=== PATIENT | male | born 1970 | race Caucasian/White ===

== ENCOUNTER 2017-08-05 20:11 | Emergency (ER) | payer OTHER ==
[~2017-08-05] VITALS: Ht 177.8 cm; Wt 96.7 kg
[~2017-08-05 20:11] MED LIST: APIX1TAB3 PO; ASPI81TA28 PO; ATOR-54 PO; DLTCD/240 PO; DOXY100C41 PO; EXEN1INJ4 SC; INSDGIPEN SC; INSU100I2 SC; METO50TA16 PO; TMB/100 PO; ZLF50 PO
[2017-08-05 20:12] VITALS: TEMP 36.9; Ht 177.8 cm; Wt 96.7 kg
--- NOTE | 2017-08-05 20:23 | EMERGENCY ROOM VISIT NOTE ---
History Report prepared by Benji: Carmela Long Under the Supervision of: Dr. Peter Handley M.D. First contact with patient: 20:16 Stated Complaint: LEG EDEMA, TESTICULE PAIN History of Present Illness The patient is a 47 year old male who presents to the Emergency Room with complaints of worsening testicular pain for the past 1 day. He rates his discomfort as a 10/10 in severity. Movement and palpation worsen his pain. The patient denies scratching his testicles or itching in his groin recently. He reports he underwent an ablation for atrial fibrillation through the groin on July 08, 2017. He states he was recovering well until yesterday, when he developed a sudden onset of testicular pain and swelling, as well as lower abdominal pain and dysuria. He states he was running a fever earlier this evening, but did not check his temperature. The patient has a history of Insulin dependent type 2 diabetes. He admits his sugars have been over 300 for the past few days. Source of History: patient Onset: yesterday Position: other (testicles) Symptom Intensity: 10/10 Timing: worsening Modifying Factors (Worsening): movement, other (palpation) Associated Symptoms: + fevers, + urinary symptoms Review of Systems See HPI for pertinent positives and negatives. A total of ten systems were reviewed and were otherwise negative. Past Medical & Surgical Medical Problems: (1) Atrial fibrillation (2) Bronchitis (3) Chest pain (4) Chest pain (5) Chest pain with high risk for cardiac etiology (6) Chronic right hip pain (7) Contusion of multiple sites (8) Diabetic neuropathy (9) DM (diabetes mellitus), type 2 (10) Fall (11) Hyperglycemia (12) Knee pain (13) Left sided numbness (14) Nicotine abuse (15) Noncompliance (16) Osteomyelitis hip (17) Osteomyelitis hip (18) Pain, dental (19) Pain, dental (20) Past Psych Meds (21) Poorly controlled diabetes mellitus (22) Right hip pain (23) Septic arthritis (24) Syncope (25) TIA (transient ischemic attack) Surgical Problems: (1) S/P cholecystectomy Family History Diabetes mellitus GRANDMOTHER HEART DISEASE MOTHER GRANDMOTHER Hypertension MOTHER GRANDMOTHER Social History Smoking Status: Former Smoker Alcohol Use: none Drug Use: none, other Marital Status: Housing Status: lives with family Occupation Status: employed Current/Historical Medications Scheduled Aspirin (Aspirin Ec), 81 MG PO DAILY Atorvastatin (Lipitor), 40 MG PO QPM Clindamycin Hcl (Clindamycin Hcl), 3 CAP PO QID Insulin Glargine (Lantus Solostar), 30 UNITS SC BID Insulin Lispro (Human) (Humalog Kwikpen), 1 DOSE SC AC Saccharomyces Boulardii (Florastor), 1 CAP PO BID Scheduled PRN Ibuprofen Tab (Motrin), 800 MG PO Q8H PRN for Pain Oxycodone Hcl (Oxycodone Hcl), 1 CAP PO QID PRN for Pain or Fever Allergies Coded Allergies: Ketorolac Tromethamine (Verified Allergy, Severe, throat swelling, 08/05/17) Tramadol (Verified Allergy, Severe, throat swelling, rash, 08/05/17) Amoxicillin (Verified Allergy, Intermediate, rash, 08/05/17) Morphine (Unverified Allergy, Intermediate, VOMITING, 08/05/17) Penicillins (Verified Allergy, Intermediate, rash, 08/05/17) Cyclobenzaprine (Verified Allergy, Mild, RASH, 08/05/17) Nitroglycerin (Verified Adverse Reaction, Intermediate, h/a for 2 weeks, ) Physical Exam Vital Signs Date Time Temp Pulse Resp B/P (MAP) Pulse Ox O2 Delivery O2 Flow Rate FiO2 08/06/17 04:21 125/86 08/06/17 03:27 98 16 138/78 97 Room Air 08/06/17 02:17 100 20 127/72 96 Room Air 08/06/17 00:54 100 16 127/79 93 Room Air 08/05/17 23:10 111 16 119/72 92 Room Air 08/05/17 22:27 107 16 127/76 92 Room Air 08/05/17 21:38 112 21 137/88 94 Room Air 08/05/17 20:26 118 08/05/17 20:12 36.9 120 24 148/87 97 Room Air Physical Exam GENERAL: Awake, alert, well-appearing, in mild distress HENT: Normocephalic, atraumatic. Oropharynx unremarkable. Dry cracked mucous membranes. EYES: Normal conjunctiva. Sclera non-icteric. NECK: Supple. No nuchal rigidity. FROM. No JVD. RESPIRATORY: Clear to auscultation. CARDIAC: Regular rate, normal rhythm. Extremities warm and well perfused. Pulses equal. ABDOMEN: Soft, non-distended. No tenderness to palpation. No rebound or guarding. No masses. RECTAL: Deferred. : Edematous scrotum with mild erythema and area of induration and fluctuance at the posterior aspect of the scrotum. MUSCULOSKELETAL: Chest examination reveals no tenderness. The back is symmetrical on inspection without obvious abnormality. There is no CVA tenderness to palpation. No joint edema. LOWER EXTREMITIES: Calves are equal size bilaterally and non-tender. No edema. No discoloration. NEURO: Normal sensorium. No sensory or motor deficits noted. SKIN: No rash or jaundice noted. Medical Decision & Procedures ER Provider Diagnostic Interpretation: Bedside Ultrasound over indurated area demonstrates discrete fluid collection consistent with abscess. Radiology results as stated below per my review and radiologist interpretation: (TESTICULAR) SCROTUM-CONT CLINICAL HISTORY: 47 years-old Male with testicular/scrotal pain/swelling - r/o abscess. Acute scrotal pain and swelling COMPARISON STUDY: CT abdomen and pelvis 02/26/2016, scrotal ultrasound 06/23/2015 TECHNIQUE: Real-time, grayscale, and color Doppler sonography of the testes and scrotum is performed. Images are reviewed in the transverse and longitudinal planes. FINDINGS: RIGHT HEMISCROTUM: The right testis measures 4.9 x 2.6 x 2.4 cm and the parenchyma appears unremarkable. No intratesticular mass is seen. Normal-appearing arterial inflow is present within the right testicle. There is a punctate calcification within the right epididymal head which otherwise appears unremarkable. No varicocele or hydrocele is identified. Moderate scrotal wall edema. LEFT HEMISCROTUM: The left testis measures 4.9 x 2.3 x 2.6 cm and the parenchyma appears unremarkable. No intratesticular mass is seen. Normal-appearing arterial inflow is present within the left testicle. The left epididymal head appears normal. No varicocele or hydrocele is identified. Moderate scrotal wall edema. IMPRESSION: 1. Unremarkable sonographic appearance of the bilateral testicles without evidence of torsion or mass. 2. Moderate scrotal wall edema without drainable fluid collection. 3. No varicocele or hydrocele identified. The above report was generated using voice recognition software. It may contain grammatical, syntax or spelling errors. Electronically signed by: Demetrio Plascencia M.D. 08/05/2017 10:27 PM Laboratory Results 08/05/17 20:40 Red Blood Count 4.88, Mean Corpuscular Volume 87.1, Mean Corpuscular Hemoglobin 30.3, Mean Corpuscular Hemoglobin Concent 34.8, Mean Platelet Volume 10.1, Neutrophils (%) (Auto) 78.7, Lymphocytes (%) (Auto) 10.3, Monocytes (%) (Auto) 10.0, Eosinophils (%) (Auto) 0.6, Basophils (%) (Auto) 0.1, Neutrophils # (Auto ) 7.36, Lymphocytes # (Auto) 0.96, Monocytes # (Auto) 0.94, Eosinophils # (Auto ) 0.06, Basophils # (Auto) 0.01 08/05/17 20:40 Test 08/05/17 20:40 08/05/17 21:01 08/05/17 21:12 08/05/17 23:35 White Blood Count 9.36 K/uL (4.8-10.8) Red Blood Count 4.88 M/uL (4.7-6.1) Hemoglobin 14.8 g/dL (14.0-18.0) Hematocrit 42.5 % (42-52) Mean Corpuscular Volume 87.1 fL (80-100) Mean Corpuscular Hemoglobin 30.3 pg (25-34) Mean Corpuscular Hemoglobin Concent 34.8 g/dl (32-36) Platelet Count 222 K/uL (130-400) Mean Platelet Volume 10.1 fL (7.4-10.4) Neutrophils (%) (Auto) 78.7 % Lymphocytes (%) (Auto) 10.3 % Monocytes (%) (Auto) 10.0 % Eosinophils (%) (Auto) 0.6 % Basophils (%) (Auto) 0.1 % Neutrophils # (Auto) 7.36 K/uL (1.4-6.5) Lymphocytes # (Auto) 0.96 K/uL (1.2-3.4) Monocytes # (Auto) 0.94 K/uL (0.11-0.59) Eosinophils # (Auto) 0.06 K/uL (0-0.5) Basophils # (Auto) 0.01 K/uL (0-0.2) RDW Standard Deviation 43.4 fL (36.4-46.3) RDW Coefficient of Variation 13.6 % (11.5-14.5) Immature Granulocyte % (Auto) 0.3 % Immature Granulocyte # (Auto) 0.03 K/uL (0.00-0.02) Est Creatinine Clear Calc Drug Dose 109.8 ml/min Estimated GFR () 107.9 Estimated GFR (Non- 93.1 BUN/Creatinine Ratio 6.8 (10-20) Calcium Level 9.5 mg/dl (8.5-10.1) Total Bilirubin 0.9 mg/dl (0.2-1) Direct Bilirubin 0.2 mg/dl (0-0.2) Aspartate Amino Transf (AST/SGOT) 19 U/L (15-37) Alanine Aminotransferase (ALT/SGPT) 21 U/L (12-78) Alkaline Phosphatase 93 U/L (45-117) Total Protein 8.1 gm/dl (6.4-8.2) Albumin 3.5 gm/dl (3.4-5.0) Lipase 64 U/L (73-393) Bedside Hemoglobin 13.9 g/dl (14.0-18.0) Bedside Hematocrit 41 % (42-52) Bedside Sodium 135 mEq/L (135-144) Bedside Potassium 3.7 mEq/L (3.3-5.0) Bedside Chloride 93 mEq/L (101-112) Bedside Total CO2 28 mEq/l (24-31) Anion Gap 19.0 mmol/L (16-25) Bedside Blood Urea Nitrogen 5 mg/dl (7-18) Bedside Creatinine 0.8 mg/dl (0.6-1.3) Bedside Glucose (other) 240 mg/dl (70-99) Bedside Ionized Calcium ([place]ria) 1.20 mmol/l (1.12-1.32) Lactic Acid Level 1.3 mmol/L (0.4-2.0) Urine Color DK YELLOW Urine Appearance CLEAR (CLEAR) Urine pH 5.0 (4.5-7.5) Urine Specific [place] 1.027 (1.000-1.030) Urine Protein 1+ (NEG) Urine Glucose (UA) 3+ (NEG) Urine Ketones TRACE (NEG) Urine Occult Blood NEG (NEG) Urine Nitrite NEG (NEG) Urine Bilirubin NEG (NEG) Urine Urobilinogen NEG (NEG) Urine Leukocyte Esterase NEG (NEG) Urine WBC (Auto) 0 /hpf (0-5) Urine RBC (Auto) 0-4 /hpf (0-4) Urine Hyaline Casts (Auto) 1-5 /lpf (0-5) Urine Epithelial Cells (Auto) 0-5 /lpf (0-5) Urine Bacteria (Auto) NEG (NEG) Test 08/06/17 02:00 Laboratory results reviewed by me Medications Administered Medications (Trade) Dose Ordered Sig/Esdras Route Start Time Stop Time Status Last Admin Dose Admin Sodium Chloride 1,000 ml @ 999 mls/hr Q1H1M STAT IV 08/05/17 20:24 08/05/17 21:24 DC 08/05/17 20:24 999 MLS/HR Fentanyl Citrate (Fentanyl Inj) 100 mcg NOW STAT IV 08/05/17 20:24 08/05/17 20:28 DC 08/05/17 21:36 100 MCG Acetaminophen 100 ml @ 400 mls/hr NOW STAT IV 08/05/17 20:24 08/05/17 20:38 DC 08/05/17 21:36 400 MLS/HR Sodium Chloride 2,000 ml @ 999 mls/hr Q2H1M STAT IV 08/05/17 20:28 08/05/17 22:28 DC 08/05/17 21:36 999 MLS/HR Sodium Chloride 1,000 ml @ 999 mls/hr Q1H1M STAT IV 08/05/17 23:45 08/06/17 00:45 DC 08/06/17 00:48 999 MLS/HR Insulin Aspart (novoLOG ASPART) 4 units NOW STAT SC 08/05/17 23:45 08/05/17 23:48 DC 08/05/17 23:45 4 UNITS Lidocaine HCl (Buffered Lidocaine 1% Inj) 20 ml ONE ONCE INFIL 08/06/17 00:30 08/06/17 00:31 DC 08/06/17 00:30 20 ML Fentanyl Citrate (Fentanyl Inj) 100 mcg NOW STAT IV 08/06/17 00:29 08/06/17 00:31 DC 08/06/17 00:48 100 MCG Sodium Chloride 1,000 ml @ 999 mls/hr Q1H1M STAT IV 08/06/17 00:34 08/06/17 01:34 DC 08/06/17 00:34 999 MLS/HR Clindamycin Phosphate 900 mg/ Dextrose 50 ml @ 100 mls/hr 0032 IV 08/06/17 00:32 08/06/17 01:01 DC 08/06/17 01:09 100 MLS/HR Fentanyl Citrate (Fentanyl Inj) 100 mcg NOW STAT IV 08/06/17 02:39 08/06/17 02:40 DC 08/06/17 02:46 100 MCG Oxycodone HCl (Roxicodone Immediate Rel 5MG Home Pack) 1 homepack UD ONCE PO 08/06/17 04:00 08/06/17 04:02 DC 08/06/17 04:16 1 HOMEPACK Clindamycin HCl (Cleocin Cap) 450 mg NOW STAT PO 08/06/17 04:00 08/06/17 04:02 DC 08/06/17 04:00 450 MG Ibuprofen (Motrin Tab) 800 mg NOW STAT PO 08/06/17 04:03 08/06/17 04:04 DC 08/06/17 04:03 800 MG Procedure Incision & Drainage Indication: Abscess. Location: Posterior Aspect of Scrotum Verbal consent was obtained after the risks and benefits were explained, including but not limited to bleeding, scarring, infection, pain, and bone/joint /nerve damage. At this time, the risks of the procedure are less than the risks of NOT performing the procedure. A time out was taken and the correct patient and site identified. The skin was prepped with Betadine and a sterile field set. The wound was anesthetized with 4 ml of 1% lidocaine without epinephrine. The abscess cavity was entered with a number 11 blade and sanguinous material expressed. Copious irrigation was performed using NSS. The wound was explored for foreign bodies and none found. Debridement was not performed. Detailed wound care instructions and signs and symptoms of worsening infection reviewed with the patient. No complications and the patient tolerated the procedure well. ECG Indication: tachycardia Rate (beats per minute): 114 Rhythm: sinus tachycardia Findings: no acute ischemic change, other (normal axis) ED Course 2018: The patient was evaluated in room B4. A complete history and physical exam was performed. Medical Decision I reviewed the patient's past medical history, medications, and the nursing notes as described above. Differential Diagnoses: torsion, mass, infection, hernia, hydrocele, abscess, epididymitis, trauma, intra-abdominal process, as well as others were entertained. The patient is a 47-year-old gentleman with a past medical history of IDDM2, prior afib s/p ablation no longer on AC who presents emergency Department with severe scrotal pain with fevers and chills that began yesterday per history of present illness. I will the patient is in mild pain distress, afebrile with stable vital signs. The patient has mild edema within the scrotum with mild erythema towards the posterior aspect with a 2 cm area of induration and fluctuance that is moderately tender to palpation. WBC within normal limits. FSBG 240s. Formal ultrasound negative for abscess however identifies scrotal edema. I reevaluated the patient and he reports that the ultrasound exam did not cover his area of tenderness. I did a bedside ultrasound that demonstrated a discrete fluid collection. Patient was given IV clindamycin. I&D attempted of indurated area but only able to obtain some sanguinous discharge. However, induration appeared to track deep. Thus, CT scan was done for further characterization and demonstrates 1.3x1 perinea abscess. No air/mallorie. Given afebrile with WBC wnl, reasonable to have patient f/u outpatient promptly. Case d/w Dr. Harding, gen surg on-call, who will be able to see patient tomorrow in clinic. Patient prefers to call himself in the morning for his appointment given his also has an appointment tomorrow and is his only ride. Patient given clear instructions on prompt f/u and well as strict return instructions. Findings and plan for follow-up reviewed with patient. Patient agreeable and d/c 'd per discharge instructions. Medication Reconcilliation Current Medication List: was personally reviewed by me Blood Pressure Screening Patient's blood pressure: Normal blood pressure Blood pressure disposition: Did not require urgent referral Impression Primary Impression: Perineal abscess Scribe Attestation The scribe's documentation has been prepared under my direction and personally reviewed by me in its entirety. I confirm that the note above accurately reflects all work, treatment, procedures, and medical decision making performed by me. Departure Information Dispostion Home / Self-Care Prescriptions Oxycodone Hcl (OXYCODONE HCL) 5 Mg Cap 1 CAP PO QID Y for Pain or Fever, #5 CAP Prov: Peter Handley M.D. 08/06/17 Ibuprofen Tab (MOTRIN) 800 Mg Tab 800 MG PO Q8H Y for Pain for 10 Days, #30 TAB Prov: Peter Handley M.D. 08/06/17 Saccharomyces Boulardii (Florastor) 250 Mg Cap 1 CAP PO BID for 12 Days, #24 CAP Prov: Peter Handley M.D. 08/06/17 Clindamycin Hcl (CLINDAMYCIN HCL) 150 Mg Cap 3 CAP PO QID for 14 Days, #168 CAP Prov: Peter Handley M.D. 08/06/17 Referrals No Doctor, Assigned (PCP) Tyrone Harding M.D. Patient Instructions ED Abscess IandD, [facility] Additional Instructions Please follow up with general surgery, Dr. Harding, tomorrow for re-evaluation and drainage of your abscess. Otherwise, your exam, ultrasound, CT scan, and lab results did not show signs of an emergent condition at this time. Clindamycin as directed. Florastor as directed to help reduce the risk of antibiotic associated diarrhea. Ibuprofen and Acetaminophen for pain as needed. Oxycodone for breakthrough pain as needed. Drink plenty of fluids to ensure hydration. Return to the emergency department for worsening symptoms as described in the accompanying instructions.
[2017-08-05] MEDS ORDERED: SODIUM CHLORIDE 0.9% 1000ML 1,000 ML IV STA ×2 (20:24→23:45)
[2017-08-05] MEDS ORDERED: ACETAMINOPHEN IV 100 ML IV STA (20:24)
[2017-08-05] MEDS ORDERED: FENTANYL CITRATE INJ 50 MCG/1 ML 2 ML VIAL IV STA (20:24)
[2017-08-05] MEDS ORDERED: SODIUM CHLORIDE 0.9% 1000ML 2,000 ML IV STA (20:28)
[2017-08-05 21:04] LABS: BASO % 0.1 %; BASO ABS # 0.01 K/uL (0-0.2); EOS % 0.6 %; EOS ABS # 0.06 K/uL (0-0.5); HEMATOCRIT 42.5 % (42-52); HEMOGLOBIN 14.8 g/dL (14.0-18.0); IG# 0.03 K/uL (0.00-0.02); LYMPH % 10.3 %; LYMPH ABS # 0.96 K/uL (1.2-3.4); MEAN CELL VOLUME 87.1 fL (80-100); MEAN CORPUSCULAR HEMOGLOBIN 30.3 pg (25-34); MEAN CORPUSCULAR HGB CONC 34.8 g/dl (32-36); MEAN PLATELET VOLUME 10.1 fL (7.4-10.4); MONO ABS # 0.94 K/uL (0.11-0.59); NEUT % 78.7 %; NEUT ABS # 7.36 K/uL (1.4-6.5); PLATELET COUNT 222 K/uL (130-400); RED CELL DISTRIBUTION WIDTH CV 13.6 % (11.5-14.5); RED CELL DISTRIBUTION WIDTH SD 43.4 fL (36.4-46.3); WHITE BLOOD COUNT 9.36 K/uL (4.8-10.8)
[2017-08-05 21:13] LABS: ISTAT CREATININE 0.8 mg/dl (0.6-1.3); ISTAT IONIZED CALCIUM 1.2 mmol/l (1.12-1.32); ISTAT POTASSIUM 3.7 mEq/L (3.3-5.0)
[2017-08-05 22:20] LABS: ALBUMIN 3.5 gm/dl (3.4-5.0); CALCIUM 9.5 mg/dl (8.5-10.1); CREATININE 0.96 mg/dl (0.60-1.40); POTASSIUM 3.7 mmol/L (3.5-5.1); TOTAL PROTEIN 8.1 gm/dl (6.4-8.2)
--- NOTE | 2017-08-05 22:28 | DIAGNOSTIC IMAGING REPORT ---
(TESTICULAR) SCROTUM-CONT CLINICAL HISTORY: 47 years-old Male with testicular/scrotal pain/swelling - r/o abscess. Acute scrotal pain and swelling COMPARISON STUDY: CT abdomen and pelvis 02/26/2016, scrotal ultrasound 06/23/2015 TECHNIQUE: Real-time, grayscale, and color Doppler sonography of the testes and scrotum is performed. Images are reviewed in the transverse and longitudinal planes. FINDINGS: RIGHT HEMISCROTUM: The right testis measures 4.9 x 2.6 x 2.4 cm and the parenchyma appears unremarkable. No intratesticular mass is seen. Normal-appearing arterial inflow is present within the right testicle. There is a punctate calcification within the right epididymal head which otherwise appears unremarkable. No varicocele or hydrocele is identified. Moderate scrotal wall edema. LEFT HEMISCROTUM: The left testis measures 4.9 x 2.3 x 2.6 cm and the parenchyma appears unremarkable. No intratesticular mass is seen. Normal-appearing arterial inflow is present within the left testicle. The left epididymal head appears normal. No varicocele or hydrocele is identified. Moderate scrotal wall edema. IMPRESSION: 1. Unremarkable sonographic appearance of the bilateral testicles without evidence of torsion or mass. 2. Moderate scrotal wall edema without drainable fluid collection. 3. No varicocele or hydrocele identified. The above report was generated using voice recognition software. It may contain grammatical, syntax or spelling errors. Electronically signed by: Demetrio Plascencia M.D. 08/05/2017 10:27 PM Dictated Date/Time: 08/05/2017 10:24 PM
[2017-08-05] MEDS ORDERED: INSULIN ASPART 100 UNITS/ML 3 ML PEN SC STA (23:45)
[2017-08-06] MEDS ORDERED: FENTANYL CITRATE INJ 50 MCG/1 ML 2 ML VIAL IV STA ×2 (00:29→02:39)
[2017-08-06] MEDS ORDERED: LIDOCAINE 1% BUFFERED INJ 20 ML VIAL INFIL ONE (00:30)
[2017-08-06] MEDS ORDERED: CLINDAMYCIN 600 MG/54 ML D5W IV STA (00:32)
[2017-08-06] MEDS ORDERED: CLINDAMYCIN IV 900 MG in DEXTROSE 5% 50ML 44 ML IV SCH (00:32)
[2017-08-06] MEDS ORDERED: SODIUM CHLORIDE 0.9% 1000ML 1,000 ML IV STA (00:34)
[2017-08-06] MEDS ORDERED: NovoLOG PER UNIT CHARGE ONE (00:44)
[2017-08-06] MEDS ORDERED: OPTIRAY 320 IV PRN (02:15)
[2017-08-06 03:27] VITALS: PULSE 98; O2SAT 97
[2017-08-06] MEDS ORDERED: SACC250C3 PO (03:43)
[2017-08-06] MEDS ORDERED: CLIN150C15 PO (03:43)
[2017-08-06] MEDS ORDERED: IBUP-1451 PO (03:57)
[2017-08-06] MEDS ORDERED: OXYC1CAP5 PO (03:57)
[2017-08-06] MEDS ORDERED: OXYCODONE IR HOME PACK PO ONE (04:00)
[2017-08-06] MEDS ORDERED: CLINDAMYCIN HCL 150 MG CAP PO STA (04:00)
[2017-08-06] MEDS ORDERED: IBUPROFEN 800 MG TAB PO STA (04:03)
[2017-08-06] MEDS ORDERED: EMPTY 8 DRAM VIAL ONE (04:09)
[2017-08-06 04:21] VITALS: BP 125/86
--- NOTE | 2017-08-06 06:45 | DIAGNOSTIC IMAGING REPORT ---
ABD/PELVIS IV CONTRAST ONLY CT DOSE: 767.45 mGy.cm HISTORY: Pain scrotal perineal induration/fluctuance, r/o abscess TECHNIQUE: Multiaxial CT images of the abdomen and pelvis were performed following the use of intravenous contrast. A dose lowering technique was utilized adhering to the principles of ALARA. COMPARISON STUDY: 02/26/2016 FINDINGS: Lung bases are considered clear. Trace amount pleural thickening posterior aspects of the costophrenic angles bilaterally. Liver spleen and pancreas are uniform. Prior cholecystectomy. Kidneys enhance uniformly. Multiple punctate nonobstructing renal cortical calcifications is similar to that of the prior exam. Nonobstructive bowel pattern. Normal appendix. Bladder is midline. No free fluid within the pelvic cul-de-sac. Mild infiltrative changes subcutaneous fat of the perineal regions. 1.5 cm rim-enhancing collection posterior left peritoneum. Moderate edematous changes superior scrotal wall. Possible small hydroceles. IMPRESSION: 1. Nonspecific cellulitis involving the general perineal and medial upper thigh regions. 2. 1.5 cm complex collection left posterior perineum possibly representing small abscess. 3. As edema the scrotal chavez with potential hydroceles. 4. Severe degenerative change right hip similar to prior exams. 5. Moderate soft tissue edematous change anterior to the right hip. The above report was generated using voice recognition software. It may contain grammatical, syntax or spelling errors. Electronically signed by: José Miguel Abraham M.D. 08/06/2017 6:44 AM Dictated Date/Time: 08/06/2017 6:39 AM
== END 2017-08-06 04:22 | disposition home or self-care (01) ==
LOC: EDBD 20:11 → C.EDB 20:13
DX: L02.215 Cutaneous abscess of perineum (principal); N50.89 Other specified disorders of the male genital organs; N50.811 Right testicular pain; N50.812 Left testicular pain